=== PATIENT | male | born 1975 | race Asian ===

== ENCOUNTER 2018-05-24 03:49 | Inpatient (IN) | payer SELFPAY ==
[~2018-05-24] VITALS: Ht 170.2 cm; Wt 89.7 kg
[2018-05-24] MEDS ORDERED: HYDROcodone/APAP 5/325 TABLET PO ONE (04:00)
[2018-05-24] MEDS ORDERED: PLEASE ENTER ALLERGIES MC SCH (04:00)
[2018-05-24] MEDS ORDERED: HYDROcodone/APAP 5/325 TABLET ONE (04:19)
[2018-05-24 04:28] LABS: BASOPHILS # (AUTO) 0.05 x10^3/uL (0-0.1); BASOPHILS % (AUTO) 1 % (0-1); EOSINOPHILS # (AUTO) 0.15 x10^3/uL (0-0.4); EOSINOPHILS % (AUTO) 2 % (1-7); LYMPHOCYTES # (AUTO) 0.86 x10^3/uL (1-3.4); LYMPHOCYTES % (AUTO) 8 % (22-44); MD NO; MEAN CORPUSCULAR HEMOGLOBIN 33.2 pg (27.5-34.5); MEAN CORPUSCULAR HGB CONC 34.4 g/dL (33.2-36.2); MEAN CORPUSCULAR VOLUME 96.5 fL (81-97); MEAN PLATELET VOLUME 7.7 fL (7.4-10.4); MONOCYTES # (AUTO) 1.09 x10^3/uL (0.2-0.8); MONOCYTES % (AUTO) 11 % (2-9); NEUTROPHILS # (AUTO) 8.14 x10^3/uL (1.8-6.8); NEUTROPHILS % (AUTO) 79 % (42-75); PLATELET COUNT 294 x10^3/uL (130-400); RED BLOOD COUNT 5.07 x10^6/uL (4.38-5.82); RED CELL DISTRIBUTION WIDTH 12.2 % (9.4-14.8)
[2018-05-24] MEDS ORDERED: LIDOCAINE 1%, 10ML INFIL ONE (04:30)
[2018-05-24 04:41] LABS: C-REACTIVE PROTEIN, QUANT 3.2 mg/dL (0.02-0.49)
[2018-05-24 04:46] LABS: HCT (SEDRATE) 48.9 % (39.2-51.8)
[2018-05-24] MEDS ORDERED: LIDOCAINE-MPF 1%, 5ML ONE (04:49)
[2018-05-24] MEDS ORDERED: ONDANSETRON 2MG/ML, 2ML ONE (05:26)
[2018-05-24] MEDS ORDERED: morphine SULFATE 10 MG/ML, 1ML ONE (05:27)
[2018-05-24] MEDS ORDERED: VANCOMYCIN PER PHARMACY MC PRN (05:30)
[2018-05-24] MEDS ORDERED: CEFEPIME 1 GM in DEXTROSE 5% 50 ML IV SCH (05:30)
[2018-05-24] MEDS ORDERED: morphine SULFATE 10 MG/ML, 1ML IVPush ONE (05:30)
[2018-05-24] MEDS ORDERED: ONDANSETRON 2MG/ML, 2ML IVPush ONE (05:30)
[2018-05-24] MEDS ORDERED: VANCOMYCIN 1,700 MG in SODIUM CHLORIDE 0.9% 250 ML IV ONE (06:00)
[2018-05-24] MEDS ORDERED: HYDROmorphone 1 MG/ML, 1ML IV ONE (06:30)
[2018-05-24] MEDS ORDERED: KETOROLAC 30 MG/1 ML IVPush ONE (07:00)
[2018-05-24 07:10] VITALS: BP 137/89
[2018-05-24] MEDS ORDERED: POLYETHYLENE GLYCOL 17 GM PACKET PO PRN (07:30)
[2018-05-24] MEDS ORDERED: ONDANSETRON 2MG/ML, 2ML IVPush PRN (07:30)
[2018-05-24] MEDS ORDERED: ACETAMINOPHEN 500 MG TABLET PO PRN (07:30)
[2018-05-24] MEDS: ALBUTEROL SULFATE 2.5 MG/3 ML NPPB PRN ×2 (10:07→14:20)
[2018-05-24] MEDS: SODIUM CHLORIDE 0.9% 1,000 ML IV SCH ×2 (10:28→21:30)
[2018-05-24] MEDS: OXYcodone IR 5MG TABLET PO PRN ×3 (10:28→22:50)
[2018-05-24 13:05] VITALS: BP 126/83
[2018-05-24] MEDS ORDERED: ALBU18HF INH (14:28)
[2018-05-24] MEDS: KETOROLAC 30 MG/1 ML IV PRN (18:45)
[2018-05-24 19:05] VITALS: BP 130/80
[2018-05-25] MEDS: ALBUTEROL SULFATE 2.5 MG/3 ML NPPB PRN ×2 (00:58→08:15)
[2018-05-25] MEDS: KETOROLAC 30 MG/1 ML IV PRN ×3 (01:41→15:58)
[2018-05-25] MEDS: VENTOLIN INH PRN ×2 (01:48→05:12)
[2018-05-25 02:00] VITALS: BP 147/87
[2018-05-25 05:42] LABS: BASOPHILS # (AUTO) 0.03 x10^3/uL (0-0.1); BASOPHILS % (AUTO) 1 % (0-1); EOSINOPHILS # (AUTO) 0.28 x10^3/uL (0-0.4); EOSINOPHILS % (AUTO) 5 % (1-7); LYMPHOCYTES # (AUTO) 1.41 x10^3/uL (1-3.4); LYMPHOCYTES % (AUTO) 23 % (22-44); MD NO; MEAN CORPUSCULAR HEMOGLOBIN 33.6 pg (27.5-34.5); MEAN CORPUSCULAR HGB CONC 34.5 g/dL (33.2-36.2); MEAN CORPUSCULAR VOLUME 97.3 fL (81-97); MEAN PLATELET VOLUME 7.8 fL (7.4-10.4); MONOCYTES # (AUTO) 0.72 x10^3/uL (0.2-0.8); MONOCYTES % (AUTO) 12 % (2-9); NEUTROPHILS # (AUTO) 3.73 x10^3/uL (1.8-6.8); NEUTROPHILS % (AUTO) 60 % (42-75); PLATELET COUNT 249 x10^3/uL (130-400); RED BLOOD COUNT 4.29 x10^6/uL (4.38-5.82); RED CELL DISTRIBUTION WIDTH 12.5 % (9.4-14.8)
[2018-05-25 06:32] VITALS: BP 142/91
[2018-05-25] MEDS: SODIUM CHLORIDE 0.9% 1,000 ML IV SCH (07:00)
[2018-05-25 12:23] VITALS: BP 132/85
== END 2018-05-25 18:45 | disposition home or self-care (01) | DRG 558 ==
LOC: ED 05:38 → EDIP 05:51 → 4WST 07:16
PROVIDERS: ADMIT Hospitalist; ATTEND Hospitalist
PROC: 0S9F3ZZ Drainage of Right Ankle Joint, Percutaneous Approach (ICD-10-PCS; principal; 2018-05-24)
DX: M65.9 Synovitis and tenosynovitis, unspecified (principal); D72.829 Elevated white blood cell count, unspecified; F17.210 Nicotine dependence, cigarettes, uncomplicated; F43.9 Reaction to severe stress, unspecified; J45.909 Unspecified asthma, uncomplicated; Z90.49 Acquired absence of other specified parts of digestive tract; M10.9 Gout, unspecified
CPT/HCPCS: 36415; 73610; 99285; J7613; 84550; 85025; 85651; 86140; 87040; 87070; 87205; 94640; 96365; 96375; G0378; J0692; J1885; J2405; J3370; J2270; J7030; J7050